=== PATIENT | female | born 1945 | race Caucasian/White ===

== ENCOUNTER 2022-09-20 16:03 | Emergency (ER) | payer MEDICARE, SELFPAY ==
--- NOTE | ~2022-09-20 | XR_ITS ---
EXAMINATION: XR CHEST CLINICAL INFORMATION: Chest pain COMPARISON: None available. TECHNIQUE: 2 views of the chest were obtained. FINDINGS: Lungs are well expanded and clear. No pleural effusion or pneumothorax. Cardiac silhouette is normal in size. Pulmonary vascular pattern is normal. 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 The degenerated lumbar spine is partially included in [id number]. XR/XR chest 2V IMPRESSION: No acute cardiopulmonary disease.
[2022-09-20 16:06] VITALS: BP 122/78; PULSE 95; RESP 18; TEMP 36.7; O2SAT 98; BMI 35.4
--- NOTE | 2022-09-20 16:06 | ED_ITS ---
HPI - General Adult General Chief complaint: Chest Pain Stated complaint: chest pain for about a week Time Seen by Provider: 09/20/22 21:38 Source: patient Mode of arrival: ambulatory Limitations: no limitations History of Present Illness HPI narrative: 77-year-old presents with chest pain. She has a history of hypertension and hypercholesterolemia for which she is treated. Her pain is in left upper chest. It is intermittent. It is not associated with exertion. Describes the pain as achy. Lasts several minutes and can sometimes go way with aspirin administration. The pain does not radiate. Not associated with nausea, vomiting, shortness of breath. Patient describes the pain is mild to moderate. She is quite active and has no pain with her activities. Patient is nervous because her neighbor recently of a heart attack. In addition she has a lot of stress, she has a child who was diagnosed with cancer her who is currently post treatment. The pain started 1 month ago Related Data Allergies Allergy/AdvReac Type Severity Reaction Status Date / Time penicillin G Allergy Unknown Verified 01/23/19 00:00 Penicillins [PENICILLINS] Allergy Unknown UNKNOWN Unverified 01/06/20 15:28 CHOCOLATE Allergy Unknown UNKNOWN Uncoded 01/06/20 15:28 REACTION TO CHEAP CHOCOLATE WINE Allergy Unknown UNKNOWN Uncoded 01/06/20 15:28 REACTION TO RED WINE Review of Systems Review of Systems: CONSTITUTIONAL: Denies weight loss, fever and chills. HEENT: Denies changes in vision and hearing. RESPIRATORY: Denies SOB and cough. CV: Denies palpitations positive CP. GI: Denies abdominal pain, nausea, vomiting and diarrhea. : Denies dysuria and urinary frequency. MSK: Denies myalgia and joint pain. SKIN: Denies rash and pruritus. NEUROLOGICAL: Denies headache and syncope. PSYCHIATRIC: Denies recent changes in mood. Denies anxiety and depression. All other ROS are negative unless in HPI PMFSH Social History Social History Alcohol intake: current Alcohol intake frequency: a few times a month Alcohol type: wine Smoked in Last 30 Days: No Use of substances other than those prescribed or required for medical reasons: No Advance Directives: No Advance Directives Information Provided: Yes Physical Exam ED Vital Signs: Vital Signs - 24 hr 09/20/22 16:06 09/20/22 21:17 Temperature 98.1 F 98.1 F Pulse Rate 95 77 Respiratory Rate 18 12 Blood Pressure 122/78 147/88 H Pulse Oximetry 98 Oxygen Delivery Method Nasal Cannula Room Air BMI result Body Mass Index 35.4 GEN: Well developed, no acute distress, alert, oriented HEENT: Normocephalic, atraumatic, normal external ears, nose appears normal, no oropharyngeal edema or exudates Eyes: Normal to appearance Neck: Supple, no lymphadenopathy Respiratory: Talks in complete sentences, no respiratory distress, clear to auscultation bilaterally Cardiovascular: Regular rate and rhythm, no murmurs rubs or gallops Abdomen: Soft, nontender, nondistended, no guarding, no rebound Back: No CVA tenderness Extremities: No clubbing cyanosis or edema Neurologic: No focal neurologic deficits, cranial nerves 2-12 intact, strength is 5/5 bilaterally Skin: No rash Course Course Course Narrative: RME performed by Lay Verdugo PA-C. Patient is a 77 year old assigned female at presenting to the emergency department with chest pain. Labs and imaging ordered. Patient placed back in the waiting room pending room availability and results. Reevaluation(s) Reevaluation #1: The workup is complete. Her examination is benign. 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 She does have risk factors for heart disease which include hypertension and hypercholesterolemia. Her story is not particular good for cardiac pain however. Pain is nonexertional. Given her risk factors and abnormalities noted on EKG, however, will refer patient to Cardiology. Patient was instructed to return to the emergency department if there is any change the nature of her pain including exertional component, change in the type of pain, persistency of pain, associated symptoms. Time: 22:25 Medical Decision Making Medical Decision Making MDM Narrative: Patient presents with chest pain. Her history and physical have a low suspicion for acute coronary syndrome, pneumothorax, pneumonia, PE, tamponade, dissection. She has not had a stress test or seen a hand candle molder. She has never had a cardiac catheterization. She is not on aspirin therapy routinely. She does have history of hypertension hypercholesterolemia for which she is treated. Patient heart score is low. Will have chest x-ray, troponin, EKG. Patient will have re-evaluation. Patient will likely need referral to a hand candle molder. Differential Diagnosis Differential Diagnoses: The differential diagnosis associated with the presentation includes (Atypical chest pain, musculoskeletal chest pain, chest wall pain, myocardial infarction, pericarditis, myocarditis, anxiety, stress, reflux, pneumonia, pulmonary embolus, dissection) Admission/Observation Consideration of admission/observation: Escalation of care including admiss ion/observation considered Lab Data MDM Lab Attestation statement: I reviewed the patient's lab results. 09/20/22 16:27 09/20/22 16:28 Labs: Lab Results 09/20/22 09/20/22 09/20/22 Range/Units 16:27 16:28 16:28 WBC 9.7 (4.8-10.8) X10*3/uL RBC 5.21 (4.20-5.50) X10*6/uL Hgb 14.6 (12.0-16.0) g/dl Hct 43.8 (37.0-47.0) % MCV 84.1 (80.0-98.0) fL MCH 28.0 (27.0-33.0) pg MCHC 33.3 (31.0-35.0) g/dl RDW 13.3 (11.0-16.0) % Plt Count 264 (160-400) X10*3/uL MPV 8.5 L (9.4-12.3) fL Immature Gran % (Auto) 0.4 (0.0-0.4) % Neut % (Auto) 60.4 (45-73) % Lymph % (Auto) 30.5 (20-40) % [place] % (Auto) 6.6 (2-11) % Eos % (Auto) 1.7 (0-4) % Baso % (Auto) 0.4 (0-2) % Lymph # (Auto) 3.0 (1.2-4.9) X10*3/uL [place] # (Auto) 0.6 (0.1-1.2) X10*3/uL Eos # (Auto) 0.2 (0.0-0.4) X10*3/uL Baso # (Auto) 0.0 (0.0-0.2) X10*3/uL Abs Immat Gran (auto) 0.04 H (0.00-0.03) X10*3/uL Absolute Neuts (auto) 5.8 (2.0-8.3) x10*3/uL Absolute Nucleated RBC 0.000 (0.0-0.012) X10*3/uL Nucleated RBC % (auto) 0.0 (0.0-0.2) /100WBC Sodium 139 (135-145) mmol/L Potassium 3.8 (3.3-5.1) mmol/L Chloride 100 (96-108) mmol/L Carbon Dioxide 29 (22-29) mmol/L Anion Gap 14 (12-20) BUN 20 H (9-16) mg/dL Creatinine 1.03 (0.5-1.4) mg/dL Estim Creat Clear Calc 49.6 Estimated GFR 52 Random Glucose 135 H (60-115) mg/dL Calcium 9.7 (8.4-10.2) mg/dL Magnesium 2.0 (1.6-2.6) mg/dL Total Bilirubin 0.9 (0.0-1.0) mg/dL AST 21 (5-31) U/L ALT 22 (0-31) U/L Alkaline Phosphatase 78 (39-117) U/L Troponin I High Sens < 2.7 (<3.5-17.0) ng/L B-Natriuretic Peptide (<100) pg/mL Total Protein 6.9 (6.5-8.0) g/dL Albumin 4.0 (3.5-5.0) g/dL Lipase 21 (8-78) U/L COVID-19 ([facility]) (Negative) COVID-19 Clin Com 09/20/22 09/20/22 Range/Units 16:28 16:28 WBC (4.8-10.8) X10*3/uL RBC (4.20-5.50) X10*6/uL Hgb (12.0-16.0) g/dl Hct (37.0-47.0) % MCV (80.0-98.0) fL MCH (27.0-33.0) pg MCHC (31.0-35.0) g/dl RDW (11.0-16.0) % Plt Count (160-400) X10*3/uL MPV (9.4-12.3) fL Immature Gran % (Auto) (0.0-0.4) % Neut % (Auto) (45-73) % Lymph % (Auto) (20-40) % [place] % (Auto) (2-11) % Eos % (Auto) (0-4) % Baso % (Auto) (0-2) % Lymph # (Auto) (1.2-4.9) X10*3/uL [place] # (Auto) (0.1-1.2) X10*3/uL Eos # (Auto) (0.0-0.4) X10*3/uL Baso # (Auto) (0.0-0.2) X10*3/uL Abs Immat Gran (auto) (0.00-0.03) X10*3/uL Absolute Neuts (auto) (2.0-8.3) x10*3/uL Absolute Nucleated RBC (0.0-0.012) X10*3/uL Nucleated RBC % (auto) (0.0-0.2) /100WBC Sodium (135-145) mmol/L Potassium (3.3-5.1) mmol/L Chloride (96-108) mmol/L Carbon Dioxide (22-29) mmol/L Anion Gap (12-20) BUN (9-16) mg/dL Creatinine (0.5-1.4) mg/dL Estim Creat Clear Calc Estimated GFR Random Glucose (60-115) mg/dL Calcium (8.4-10.2) mg/dL Magnesium (1.6-2.6) mg/dL Total Bilirubin (0.0-1.0) mg/dL AST (5-31) U/L ALT (0-31) U/L Alkaline Phosphatase (39-117) U/L Troponin I High Sens (<3.5-17.0) ng/L B-Natriuretic Peptide 11 (<100) pg/mL Total Protein (6.5-8.0) g/dL Albumin (3.5-5.0) g/dL Lipase (8-78) U/L COVID-19 ([facility]) Negative (Negative) COVID-19 Clin Com See Note Independent Interpretation I performed an independent interpretation of an: EKG (Normal sinus rhythm heart rate 90, no acute ST elevations or depressions, poor precordial progression 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 ( XR/XR chest 2V IMPRESSION: No acute cardiopulmonary disease. Dictated By:Destin Carmen MDSigned By:<Electron ically signed by Destin Carmen MD in [place]>09/20/22 [id number]) Prescription Management I considered prescription management with: Pain Medication Discharge Plan Discharge Clinical Impression: Atypical chest pain, Abnormal ECG Patient Disposition: Home, Self-Care Instructions: Chest Pain (ED) Referrals: Jona Pereira MD [Physician] - 1 week
--- NOTE | 2022-09-20 16:07 | ECG_ITS ---
Test Reason : chest pain Blood Pressure : / mmHG Vent. Rate : 090 BPM Atrial Rate : 090 BPM P-R Int : 160 ms QRS Dur : 090 ms QT Int : 352 ms P-R-T Axes : 056 -26 035 degrees QTc Int : 430 ms Normal sinus rhythm Anterolateral infarct , age undetermined Abnormal ECG When compared with ECG of 24-MAR-2014 08:53, Anterior infarct is now Present Anterolateral infarct is now Present Referred By: Lay Verdugo Electronically Signed By:MARY RYAN MD
[2022-09-20 16:32] LABS: MANUAL DIFF FLAG NO
[2022-09-20 16:34] LABS: Basophils Percent Auto 0.4 % (0-2); Eosinophils Absolute Auto 0.2 X10*3/uL (0.0-0.4); Eosinophils Percent Auto 1.7 % (0-4); Hematocrit 43.8 % (37.0-47.0); Hemoglobin 14.6 g/dl (12.0-16.0); Imm Gran Abs Auto 0.04 X10*3/uL (0.00-0.03); Imm Gran Pct Auto 0.4 % (0.0-0.4); Lymphocytes Percent Auto 30.5 % (20-40); Mean Corpuscular HGB Conc 33.3 g/dl (31.0-35.0); Mean Corpuscular Volume 84.1 fL (80.0-98.0); Mean Platelet Volume 8.5 fL (9.4-12.3); Monocytes Absolute Auto 0.6 X10*3/uL (0.1-1.2); Monocytes Percent Auto 6.6 % (2-11); Neutrophils Absolute Auto 5.8 x10*3/uL (2.0-8.3); Neutrophils Percent Auto 60.4 % (45-73); Platelet Count 264 X10*3/uL (160-400); Red Blood Count 5.21 X10*6/uL (4.20-5.50); Red Cell Distribution Width 13.3 % (11.0-16.0); White Blood Count 9.7 X10*3/uL (4.8-10.8)
--- NOTE | 2022-09-20 16:45 | MHC.EDTECH ---
PT EKG DONE AND WAS READ BY PROVIDER ,BLOOD DRAWN COVID SWAB COLLECTED AND SENT TO LAB .
[2022-09-20 16:53] LABS: Alanine Aminotransferase 22 U/L (0-31); Alkaline Phosphatase 78 U/L (39-117); Anion Gap 14 (12-20); Aspartate Amino Transferase 21 U/L (5-31); Bilirubin Total 0.9 mg/dL (0.0-1.0); Blood Urea Nitrogen 20 mg/dL (9-16); Calcium 9.7 mg/dL (8.4-10.2); Carbon Dioxide 29 mmol/L (22-29); Chloride 100 mmol/L (96-108); Creatinine Clr Calc Pharmacy 49.6; Estimated Glomerular Filt Rate 52; Glucose Random 135 mg/dL (60-115); Lipase 21 U/L (8-78); Potassium 3.8 mmol/L (3.3-5.1); Sodium 139 mmol/L (135-145); Total Protein 6.9 g/dL (6.5-8.0)
[2022-09-20 16:58] LABS: B Type Natriuretic Peptide 11 pg/mL (<100)
[2022-09-20 17:00] LABS: Troponin-I High Sensitivity < 2.7 ng/L (<3.5-17.0)
[2022-09-20 17:16] LABS: COVID-19 Test Negative (Negative); IDNOW Serial# BCCEAD1C
[2022-09-20 21:17] VITALS: BP 147/88; PULSE 77; RESP 12; TEMP 36.7
== END 2022-09-20 22:27 | disposition home or self-care (01) ==
PROVIDERS: Physician Assistant Medical; Emergency Provider Emergency Medicine; PCP Nurse Practitioner Family
DX: R07.89 Other chest pain (principal); R94.31 Abnormal electrocardiogram [ECG] [EKG]; Z20.822 Contact with and (suspected) exposure to COVID-19; I10 Essential (primary) hypertension; E78.00 Pure hypercholesterolemia, unspecified; Z79.899 Other long term (current) drug therapy
CPT/HCPCS: 71046; 80053; 83690; 83735; 83880; 84484; 85025; 87635; 93005; 99283; 99284; 99285